=== PATIENT | female | born 2000 | race Caucasian/White ===

== ENCOUNTER 2019-01-23 13:01 | Observation (INO) | payer BC, OTHER ==
--- NOTE | 2019-01-23 13:37 | EDM.PDOC ---
ED HPI GENERAL MEDICAL PROBLEM - General Chief Complaint: Respiratory Problem Stated Complaint: SOB/ Time Seen by Provider: 01/23/19 13:25 Source of Information: Reports: Patient History Limitations: Reports: No Limitations - History of Present Illness INITIAL COMMENTS - FREE TEXT/NARRATIVE: patient is a 18-year-old female who presents with complaints of shortness of breath and feeling of heaviness in her chest, specifically in the right upper chest/neck area, when she tries to take a deep breath for the last few days. She states that the shortness of breath is present at rest and with activity. She denies any pain in her chest, cough, fever or chills. Of note the patient is 2 weeks with a normal vaginal delivery. The patient did have anemia during her and continues to take an iron tablets daily. She also takes a vitamin and vitamin D. She states that her flow is scant at this time and that she did not have excessive bleeding . She denies any chronic health problems. Dr. Cramer is her primary care provider and was also her LIGHT ADJUSTER. She has not had a follow-up appointment as of yet. - Related Data Allergies Allergy/AdvReac Type Severity Reaction Status Date / Time cat dander Allergy Itching Verified 01/23/19 13:20 Home Meds: Home Meds Iron Polysaccharides Complex [Ferrex 150] 150 mg PO BID 01/23/19 [History] Past Medical History - Past Health History Medical/Surgical History: Denies Medical/Surgical History Cardiovascular History: Reports: Heart Murmur Respiratory History: Reports: Asthma Gastrointestinal History: Reports: GERD, Other (See Below) LIGHT ADJUSTER History: Reports: Psychiatric History: Reports: Anxiety, Depression Hematologic History: Reports: Anemia - Past Surgical History HEENT Surgical History: Reports: Other (See Below) Other HEENT Surgeries/Procedures: wisdom teeth removed Other Cardiovascular Surgeries/Procedures: no complications from heart mumur GI Surgical History: Reports: Other (See Below) Other GI Surgeries/Procedures: gastric sleeve sx. in june 2017 Social & Family History - Family History Family Medical History: Noncontributory - Tobacco Use Smoking Status *Q: Never Smoker Second Hand Smoke Exposure: No - Caffeine Use Caffeine Use: Reports: Coffee, Energy Drinks, Soda - Recreational Drug Use Recreational Drug Use: No ED ROS GENERAL - Review of Systems Review Of Systems: See Below Constitutional: Reports: No Symptoms. Denies: Fever, Chills, Malaise HEENT: Reports: No Symptoms Respiratory: Reports: Shortness of Breath. Denies: Wheezing, Pleuritic Chest Pain, Cough Cardiovascular: Reports: Dyspnea on Exertion. Denies: Lightheadedness, Palpitations Endocrine: Reports: No Symptoms GI/Abdominal: Reports: No Symptoms. Denies: Abdominal Pain, Nausea : Reports: No Symptoms Musculoskeletal: Reports: No Symptoms Skin: Reports: No Symptoms Neurological: Reports: No Symptoms. Denies: Dizziness, Headache Psychiatric: Reports: No Symptoms Hematologic/Lymphatic: Reports: No Symptoms Immunologic: Reports: No Symptoms ED EXAM, GENERAL - Physical Exam Exam: See Below Exam Limited By: No Limitations General Appearance: Alert, WD/WN, No Apparent Distress Head: Atraumatic, Normocephalic Respiratory/Chest: No Respiratory Distress, Lungs Clear, Normal Breath Sounds, No Accessory Muscle Use, Chest Non-Tender Cardiovascular: Normal Peripheral Pulses, Regular Rate, Rhythm, No Edema, No Murmur GI/Abdominal: Normal Bowel Sounds, Soft, Non-Tender, No Distention, No Mass Extremities: Normal Inspection, No Pedal Edema Neurological: Alert, Oriented, Normal Cognition Psychiatric: Normal Affect, Normal Mood Skin Exam: Warm, Dry, Intact, Normal Color, No Rash Lymphatic: No Adenopathy Course - Vital Signs Last Recorded V/S: Last Vital Signs Temp 98.4 F 01/23/19 13:19 Pulse 70 01/23/19 13:19 Resp 14 01/23/19 13:19 BP 114/70 01/23/19 13:19 Pulse Ox 98 01/23/19 13:19 - Orders/Labs/Meds Orders: Active Orders 24 hr Category Date Time Status Patient Status [ADT] Routine ADT 01/23/19 17:25 Active Activity as Tolerated [RC] .Routine Care 01/23/19 17:25 Active Antiembolic Devices [RC] PER UNIT ROUTINE Care 01/23/19 17:25 Active Notify Provider Consults [RC] ASDIRECTED Care 01/23/19 17:17 Active Oxygen Therapy [RC] PRN Care 01/23/19 17:25 Active RT Incentive Spirometry [RC] Q1HWA Care 01/23/19 17:25 Active Vital Signs [RC] Q8H Care 01/23/19 17:25 Active Consult to Physician [CONS] Stat Cons 01/23/19 17:05 Active Nothing Per Oral Diet [DIET] Diet 01/23/19 Breakfast Active BASIC METABOLIC PANEL,BMP [CHEM] AM Lab 01/24/19 05:11 Ordered CBC WITH AUTO DIFF [HEME] AM Lab 01/24/19 05:11 Ordered Heparin Sodium Med 01/23/19 17:30 Active 5,000 units SUBCUT Q8H Lactated Ringers [Ringers, Lactated] 1,000 ml Med 01/23/19 17:30 Active IV ASDIRECTED Sodium Chloride 0.9% [Saline Flush] Med 01/23/19 16:26 Active 10 ml FLUSH ONETIME PRN Sequential Compression Device [OM.PC] Routine Oth 01/23/19 17:25 Ordered Resuscitation Status Routine Resus Stat 01/23/19 17:25 Ordered Medication Orders Heparin Sodium (Porcine) (Heparin Sodium) 5,000 units SUBCUT Q8H MORGAN Lactated Ringer's (Ringers, Lactated) 1,000 mls @ 100 mls/hr IV ASDIRECTED MORGAN Sodium Chloride (Saline Flush) 10 ml FLUSH ONETIME PRN PRN Reason: KEEP VEIN OPEN Last Admin: 01/23/19 16:31 Dose: 10 ml Labs: Laboratory Tests 01/23/19 01/23/19 01/23/19 Range/Units 14:05 14:05 14:05 WBC 5.99 (3.98-10.04) K/mm3 RBC 4.91 (3.98-5.22) M/mm3 Hgb 14.2 D (11.2-15.7) gm/dl Hct 42.8 (34.1-44.9) % MCV 87.2 (79.4-94.8) fl MCH 28.9 (25.6-32.2) pg MCHC 33.2 (32.2-35.5) g/dl RDW Std Deviation 47.5 H (36.4-46.3) fL Plt Count 241 D (182-369) K/mm3 MPV 11.4 (9.4-12.3) fl Neut % (Auto) 60.8 (34.0-71.1) % Lymph % (Auto) 27.9 (19.3-51.7) % [place] % (Auto) 7.8 (4.7-12.5) % Eos % (Auto) 3.0 (0.7-5.8) Baso % (Auto) 0.5 (0.1-1.2) % Neut # (Auto) 3.64 (1.56-6.13) K/mm3 Lymph # (Auto) 1.67 (1.18-3.74) K/mm3 [place] # (Auto) 0.47 H (0.24-0.36) K/mm3 Eos # (Auto) 0.18 (0.04-0.36) K/mm3 Baso # (Auto) 0.03 (0.01-0.08) K/mm3 D-Dimer, Quantitative 0.46 (0.19-0.50) mg/L Sodium 146 H (136-145) mEq/L Potassium 4.1 (3.5-5.1) mEq/L Chloride 110 H (98-107) mEq/L Carbon Dioxide 26 (21-32) mEq/L Anion Gap 14.1 (5-15) BUN 13 (7-18) mg/dL Creatinine 1.0 (0.55-1.02) mg/dL Est Cr Clr Drug Dosing 84.71 mL/min Estimated GFR (MDRD) > 60 (>60) mL/min BUN/Creatinine Ratio 13.0 L (14-18) Glucose 87 (74-106) mg/dL Calcium 8.9 (8.5-10.1) mg/dL Total Bilirubin 0.6 (0.2-1.0) mg/dL AST 20 (15-37) U/L ALT 28 (14-59) U/L Alkaline Phosphatase 122 H (46-116) U/L Total Protein 7.0 (6.4-8.2) g/dl Albumin 3.4 (3.4-5.0) g/dl Globulin 3.6 gm/dL Albumin/Globulin Ratio 0.9 L (1-2) Meds: Medications Generic Name Dose Route Start Last Admin Trade Name Freq PRN Reason Stop Dose Admin Heparin Sodium (Porcine) 5,000 units 01/23/19 17:30 Heparin Sodium SUBCUT Q8H MORGAN Lactated Ringer's 1,000 mls @ 100 mls/hr 01/23/19 17:30 Ringers, Lactated IV ASDIRECTED MORGAN Sodium Chloride 10 ml 01/23/19 16:26 01/23/19 16:31 Saline Flush FLUSH 10 ml ONETIME PRN Administration KEEP VEIN OPEN Discontinued Medications Generic Name Dose Route Start Last Admin Trade Name Mayur PRN Reason Stop Dose Admin Diatrizoate Meglum/Diatrizoate Sod 60 ml 01/23/19 16:26 01/23/19 16:30 Gastrografin 37% PO 01/23/19 16:27 60 ml ONETIME ONE Administration Iopamidol 100 ml 01/23/19 16:26 01/23/19 16:31 Isovue-300 (61%) IVPUSH 01/23/19 16:27 100 ml ONETIME ONE Administration - Re-Assessments/Exams Free Text/Narrative Re-Assessment/Exam: patient is a 18-year-old female who presents with complaints of shortness of breath and heaviness in her chest for the last couple days. She denies any pain to the chest at any point and has not had a cough, fever, or chills. Patient is approximately 2 weeks from a normal vaginal delivery. Her vital signs are normal with an oxygen saturation is 98% on room air, respiratory rate 14, her pulse is 70, and a blood pressure of 114/70. She is afebrile with a temperature of 98.4. She does have a history of anemia during and has been taking iron supplements daily in addition to a vitamin. She states that she did not have significant bleeding and that her flow is currently scant. I've ordered a CBC to check for anemia, a d- dimer, as well as a 2 view chest x-ray. 01/23/19 15:03 Patient's laboratory test returned back grossly unremarkable. Her hemoglobin is normal at 14.2 and her d-dimer is normal at 0.46. Her chest x-ray however does show a small amount of free air beneath both hemidiaphragms. Patient has not had any abdominal pain and I did confirm that she did have a normal vaginal delivery, not a section. On exam patient's abdomen was nontender, and soft. She states that she did have a gastric sleeve done a little over a year ago, but no recent abdominal surgeries. Case reviewed with Dr. Sotelo who also did assess the patient. We did call the on-call LIGHT ADJUSTER, Dr. Parada. He knew of no normal correlation between free air in the abdomen and a vaginal delivery. Based on this finding we are going to proceed with an abdomen pelvis CT. Patient and her mother updated and they are in agreement with this plan. The patient is breast-feeding and had questions of whether or not it is okay to continue to breast-feed after the CT scan. Patient was educated that if she chooses to pump and dump that is okay however the [employer] does state that it is safe to continue breast-feeding after a contrast enhanced CT. Free Text/Narrative Re-Assessment/Exam: 01/23/19 17:05 formal read on the CT report is still pending. I did call and speak with our general surgeon on-call, Dr. Wong, to give him the information that we have on the case up until this point. He states that he will come in and see her. Free Text/Narrative Re-Assessment/Exam: 01/23/19 17:[address] the [address] abdomen and pelvisreads as follows: 1. Generous sized uterus compatible with state. 2. Prior gastric surgery. 3. Free air beneath the hemidiaphragms, etiology not seen on this exam. 3. Nothing acute is otherwise seen on CT study of the abdomen and pelvis. Dr. Wong was here to assess patient. He advised that he is going to admit the patient overnight for observation. He has already placed admission orders. Charge nurse updated. discussed this plan with patient and her mother. They' re in agreement with the plan and have no questions. Departure - Departure Time of Disposition: 17:40 Disposition: Refer to Observation Condition: Good Clinical Impression: Intra-abdominal free air of unknown etiology - Discharge Information *PRESCRIPTION DRUG MONITORING PROGRAM REVIEWED*: No *COPY OF PRESCRIPTION DRUG MONITORING REPORT IN PATIENT EDWAR: No Referrals: Ekaterina Cramer MD [Primary Care Provider] - Forms: ED Department Discharge - My Orders Last 24 Hours: My Active Orders 01/23/19 16:26 Sodium Chloride 0.9% [Saline Flush] 10 ml FLUSH ONETIME PRN 01/23/19 17:05 Consult to Physician [CONS] Stat 01/23/19 17:17 Notify Provider Consults [RC] ASDIRECTED - Assessment/Plan Last 24 Hours: My Active Orders 01/23/19 16:26 Sodium Chloride 0.9% [Saline Flush] 10 ml FLUSH ONETIME PRN 01/23/19 17:05 Consult to Physician [CONS] Stat 01/23/19 17:17 Notify Provider Consults [RC] ASDIRECTED
--- NOTE | 2019-01-23 14:19 | CR ---
Chest: Two views of the chest were obtained. Comparison: No prior chest x-ray. Small amount of free air is seen below both hemidiaphragms. Lungs are clear with no acute parenchymal change. Heart size and mediastinum are normal. Bony structures are unremarkable. Impression: 1. Small amount of free air beneath both hemidiaphragms. Please correlate if this represents recent surgery. 2. Nothing acute is otherwise seen on two-view chest x-ray. Diagnostic code #5
[2019-01-23] MEDS ORDERED: Iopamidol 612 MG/ML 100 ML Bottle IVPUSH ONE (16:26)
[2019-01-23] MEDS ORDERED: Sodium Chloride 0.9% 10 ML Syringe FLUSH PRN (16:26)
[2019-01-23] MEDS ORDERED: Diatrizoate Meglumine/Diatrizoate Sodium 37% 120 ML Bottle PO ONE (16:26)
--- NOTE | 2019-01-23 17:06 | CT ---
CT abdomen and pelvis Technique: Multiple axial sections were obtained from slightly below the top the liver inferiorly through the pubic symphysis. Intravenous and oral contrast was utilized. Comparison: Prior CT stone protocol study of 12/26/17. Findings: Free air identified below both hemidiaphragms. Previous stomach surgery is noted. Visualized lung bases show nothing acute. Liver shows no discrete abnormality. Spleen appears within normal limits. Adrenal glands show no nodule. Kidneys show symmetric contrast enhancement. Right ureter slightly prominent in size. Pancreas is within normal limits. Gallbladder contains no calcified gallstones. Aorta shows no aneurysm. No retroperitoneal adenopathy or mesenteric abnormalities are seen. Uterus is slightly generous in size compatible with uterus. No free fluid or inflammatory change is seen. Right ureter remains slightly prominent likely representing residual change from previous hydronephrosis . Appendix is seen and is normal in size. Impression: 1. Generous sized uterus compatible with state. 2. Prior gastric surgery. 3. Free air beneath the hemidiaphragms, etiology not seen on this exam. 3. Nothing acute is otherwise seen on CT study of the abdomen and pelvis. Diagnostic code #3
--- NOTE | 2019-01-23 17:33 | PCM.HP.2 ---
H&P History of Present Illness - General Date of Service: 01/23/19 Admit Problem/Dx: Admission Diagnosis/Problem Admission Diagnosis/Problem Pneumoperitoneum Source of Information: Patient History Limitations: Reports: No Limitations - History of Present Illness Duration of Symptoms: Reports: Day(s): Location: Reports: Abdomen Other HPI/Comments: 18 yo with history of obesity s/p lap gastric sleeve 18 months ago and now 2 weeks after unremarkable vaginal delivery presents with a few days of shortness of breath. Found to have pneumoperitoneum on imaging. Denies pain, vitals and labs within normal limits. In no distress. - Related Data Allergies/Adverse Reactions: Allergies Allergy/AdvReac Type Severity Reaction Status Date / Time cat dander Allergy Itching Verified 01/23/19 13:20 Home Medications: Home Meds Iron Polysaccharides Complex [Ferrex 150] 150 mg PO BID 01/23/19 [History] Past Medical History - Past Health History Medical/Surgical History: Denies Medical/Surgical History Cardiovascular History: Reports: Heart Murmur Respiratory History: Reports: Asthma Gastrointestinal History: Reports: GERD, Other (See Below) BRAIN SURGEON History: Reports: Psychiatric History: Reports: Anxiety, Depression Hematologic History: Reports: Anemia - Past Surgical History HEENT Surgical History: Reports: Other (See Below) Other HEENT Surgeries/Procedures: wisdom teeth removed Other Cardiovascular Surgeries/Procedures: no complications from heart mumur GI Surgical History: Reports: Other (See Below) Other GI Surgeries/Procedures: gastric sleeve sx. in june 2017 Social & Family History - Family History Family Medical History: Noncontributory - Tobacco Use Smoking Status *Q: Never Smoker Second Hand Smoke Exposure: No - Caffeine Use Caffeine Use: Reports: Coffee, Energy Drinks, Soda - Recreational Drug Use Recreational Drug Use: No H&P Review of Systems - Review of Systems: Review Of Systems: See Below General: Reports: No Symptoms HEENT: Reports: No Symptoms Pulmonary: Reports: Shortness of Breath Cardiovascular: Reports: No Symptoms Gastrointestinal: Reports: No Symptoms Genitourinary: Reports: No Symptoms Musculoskeletal: Reports: No Symptoms Skin: Reports: No Symptoms Psychiatric: Reports: No Symptoms Neurological: Reports: No Symptoms Hematologic/Lymphatic: Reports: No Symptoms Immunologic: Reports: No Symptoms Exam - Exam Exam: See Below - Vital Signs Vital Signs: Last Vital Signs Temp 36.9 C 01/23/19 13:19 Pulse 70 01/23/19 13:19 Resp 14 01/23/19 13:19 BP 114/70 01/23/19 13:19 Pulse Ox 98 01/23/19 13:19 Weight: 89.811 kg - Exam General: Alert, Oriented, Cooperative HEENT: Conjunctiva Clear Neck: Supple Lungs: Clear to Auscultation, Normal Respiratory Effort Cardiovascular: Regular Rate, Regular Rhythm GI/Abdominal Exam: Soft, Non-Tender, No Distention (Female) Exam: Deferred Rectal (Female) Exam: Deferred Back Exam: Normal Inspection Extremities: Normal Inspection Skin: Warm, Dry Neuro Extensive - Mental Status: Alert, Oriented x3, Normal Mood/Affect, Normal Cognition Neuro Extensive - Motor, Sensory, Reflexes: Normal Gait Psychiatric: Alert, Normal Affect, Normal Mood - Patient Data Lab Results Last 24 hrs: Laboratory Results - last 24 hr 01/23/19 01/23/19 Range/Units 14:05 14:05 WBC 5.99 (3.98-10.04) K/mm3 RBC 4.91 (3.98-5.22) M/mm3 Hgb 14.2 D (11.2-15.7) gm/dl Hct 42.8 (34.1-44.9) % MCV 87.2 (79.4-94.8) fl MCH 28.9 (25.6-32.2) pg MCHC 33.2 (32.2-35.5) g/dl RDW Std Deviation 47.5 H (36.4-46.3) fL Plt Count 241 D (182-369) K/mm3 MPV 11.4 (9.4-12.3) fl Neut % (Auto) 60.8 (34.0-71.1) % Lymph % (Auto) 27.9 (19.3-51.7) % [place] % (Auto) 7.8 (4.7-12.5) % Eos % (Auto) 3.0 (0.7-5.8) Baso % (Auto) 0.5 (0.1-1.2) % Neut # (Auto) 3.64 (1.56-6.13) K/mm3 Lymph # (Auto) 1.67 (1.18-3.74) K/mm3 Jay # (Auto) 0.47 H (0.24-0.36) K/mm3 Eos # (Auto) 0.18 (0.04-0.36) K/mm3 Baso # (Auto) 0.03 (0.01-0.08) K/mm3 D-Dimer, Quantitative 0.46 (0.19-0.50) mg/L Result Diagrams: 01/23/19 14:05 *Q Meaningful Use (ADM) - VTE Risk Assess *Q Each Risk Factor Represents 1 Point: or , Less than 1 Month Total Score 1 Point Risk Factors: 1 Problem List Initiated/Reviewed/Updated: Yes Orders Last 24hrs: Active Orders 24 hr Category Date Time Status Patient Status [ADT] Routine ADT 01/23/19 17:25 Ordered Activity as Tolerated [RC] .Routine Care 01/23/19 17:25 Ordered Antiembolic Devices [RC] PER UNIT ROUTINE Care 01/23/19 17:25 Ordered Notify Provider Consults [RC] ASDIRECTED Care 01/23/19 17:17 Active Oxygen Therapy [RC] PRN Care 01/23/19 17:25 Ordered RT Incentive Spirometry [RC] Q1HWA Care 01/23/19 17:25 Ordered Vital Signs [RC] Q8H Care 01/23/19 17:25 Ordered Consult to Physician [CONS] Stat Cons 01/23/19 17:05 Active Nothing Per Oral Diet [DIET] Diet 01/23/19 Breakfast Ordered BASIC METABOLIC PANEL,BMP [CHEM] AM Lab 01/24/19 05:11 Ordered CBC WITH AUTO DIFF [HEME] AM Lab 01/24/19 05:11 Ordered COMPREHENSIVE METABOLIC PN,CMP [CHEM] Stat Lab 01/23/19 14:05 Received Heparin Sodium Med 01/23/19 17:30 Ordered 5,000 units SUBCUT Q8H Lactated Ringers @ 100 MLS/HR(1000ml Bag) Med 01/23/19 17:30 Ordered Lactated Ringers [Ringers, Lactated] 1,000 ml IV ASDIRECTED Sodium Chloride 0.9% [Saline Flush] Med 01/23/19 16:26 Active 10 ml FLUSH ONETIME PRN Sequential Compression Device [OM.PC] Routine Oth 01/23/19 17:25 Ordered Resuscitation Status Routine Resus Stat 01/23/19 17:25 Ordered Medication Orders Heparin Sodium (Porcine) (Heparin Sodium) 5,000 units SUBCUT Q8H [facility] Lactated Ringer's (Ringers, Lactated) 1,000 mls @ 100 mls/hr IV ASDIRECTED [facility] Sodium Chloride (Saline Flush) 10 ml FLUSH ONETIME PRN PRN Reason: KEEP VEIN OPEN Last Admin: 01/23/19 16:31 Dose: 10 ml Assessment/Plan Comment:: Incidental finding of pneumoperitoneum during evaluation for shortness of breath. Oxygenating well on room air, in no distress. Lab work and vitals are normal. The etiology of free air is unclear, but the patient's overall clinical picture is very reassuring. Plan to admit to obs, keep NPO and keep off pain medications, and re-evaluate in AM. - Mortality Measure Prognosis:: Good
[2019-01-23] MEDS: Lactated Ringers 1,000 ML IV SCH (18:39)
[2019-01-23] MEDS: Heparin Sodium 5,000 Units/ML Vial SUBCUT SCH (18:39)
[2019-01-24] MEDS: Heparin Sodium 5,000 Units/ML Vial SUBCUT SCH ×3 (02:20→09:03)
[2019-01-24] MEDS: Lactated Ringers 1,000 ML IV SCH (04:48)
[2019-01-24 12:57] VITALS: BP 121/60; PULSE 76
--- NOTE | 2019-01-24 13:58 | PCM.DCSUM1 ---
Discharge Summary - Hospital Course Free Text/Narrative:: prsented to ER two weeks with shortness of breath. Vitals were normal , but a CXR revealed incidental finding of pneumoperitoneum. This was confimred on CT scan, without free fluid seen in the abdomen. She had no abdominal pain and no tenderness on exam whatsoever. She was admitted for observation, kept NPO for 12 hours in house, then diet was advanced to make sure she would tolerate it for a day prior to discharge. Reviewed symptoms she should watch for. Diagnosis: Stroke: No - Discharge Data Discharge Date: 01/24/19 Discharge Disposition: Home, Self-Care 01 Condition: Good - Referral to Home Health Primary Care Physician: Ekaterina Cramer MD - Patient Summary/Data Consults: Consultations 01/23/19 17:05 Consult to Physician [CONS] Stat - Patient Instructions Diet: Regular Diet as Tolerated Driving: May Drive Today Showering/Bathing: June Shower Notify Provider of: Fever, Increased Pain, Nausea and/or Vomiting - Discharge Plan *PRESCRIPTION DRUG MONITORING PROGRAM REVIEWED*: Not Applicable *COPY OF PRESCRIPTION DRUG MONITORING REPORT IN PATIENT EDWAR: Not Applicable Home Medications: Home Meds Calcium Carbonate/Vitamin D3 [Calcium 500 mg Chewable Tablet] 1 each PO DAILY [History] Cholecalciferol (Vitamin D3) [Vitamin D] 1 cap PO DAILY 01/23/19 [History] Iron Polysaccharides Complex [Ferrex 150] 150 mg PO BID 01/23/19 [History] Pnv No.95/Ferrous Fum/Folic AC [ Caplet] 1 tab PO DAILY 01/23/19 [ History] Oxygen Therapy Mode: Room Air Patient Handouts: Peptic Ulcer, [id number] Forms: ED Department Discharge Referrals: Ekaterina Cramer MD [Primary Care Provider] - - Discharge Summary/Plan Comment DC Time >30 min.: Yes - Patient Data Vitals - Most Recent: Last Vital Signs Temp 36.6 C 01/24/19 12:38 Pulse 76 01/24/19 12:38 Resp 18 01/24/19 12:38 BP 121/60 01/24/19 12:38 Pulse Ox 98 01/24/19 12:38 Weight - Most Recent: 91.217 kg I&O - Last 24 hours: Intake & Output 01/23/19 01/24/19 01/24/19 22:59 06:59 14:59 Intake Total 1000 120 Balance 1000 120 Lab Results - Last 24 hrs: Laboratory Results - last 24 hr 01/23/19 01/23/19 01/23/19 Range/Units 14:05 14:05 14:05 WBC 5.99 (3.98-10.04) K/mm3 RBC 4.91 (3.98-5.22) M/mm3 Hgb 14.2 D (11.2-15.7) gm/dl Hct 42.8 (34.1-44.9) % MCV 87.2 (79.4-94.8) fl MCH 28.9 (25.6-32.2) pg MCHC 33.2 (32.2-35.5) g/dl RDW Std Deviation 47.5 H (36.4-46.3) fL Plt Count 241 D (182-369) K/mm3 MPV 11.4 (9.4-12.3) fl Neut % (Auto) 60.8 (34.0-71.1) % Lymph % (Auto) 27.9 (19.3-51.7) % [place] % (Auto) 7.8 (4.7-12.5) % Eos % (Auto) 3.0 (0.7-5.8) Baso % (Auto) 0.5 (0.1-1.2) % Neut # (Auto) 3.64 (1.56-6.13) K/mm3 Lymph # (Auto) 1.67 (1.18-3.74) K/mm3 [place] # (Auto) 0.47 H (0.24-0.36) K/mm3 Eos # (Auto) 0.18 (0.04-0.36) K/mm3 Baso # (Auto) 0.03 (0.01-0.08) K/mm3 D-Dimer, Quantitative 0.46 (0.19-0.50) mg/L Sodium 146 H (136-145) mEq/L Potassium 4.1 (3.5-5.1) mEq/L Chloride 110 H (98-107) mEq/L Carbon Dioxide 26 (21-32) mEq/L Anion Gap 14.1 (5-15) BUN 13 (7-18) mg/dL Creatinine 1.0 (0.55-1.02) mg/dL Est Cr Clr Drug Dosing 84.71 mL/min Estimated GFR (MDRD) > 60 (>60) mL/min BUN/Creatinine Ratio 13.0 L (14-18) Glucose 87 (74-106) mg/dL Calcium 8.9 (8.5-10.1) mg/dL Total Bilirubin 0.6 (0.2-1.0) mg/dL AST 20 (15-37) U/L ALT 28 (14-59) U/L Alkaline Phosphatase 122 H (46-116) U/L Total Protein 7.0 (6.4-8.2) g/dl Albumin 3.4 (3.4-5.0) g/dl Globulin 3.6 gm/dL Albumin/Globulin Ratio 0.9 L (1-2) 01/24/19 01/24/19 Range/Units 04:50 04:50 WBC 5.75 (3.98-10.04) K/mm3 RBC 4.32 (3.98-5.22) M/mm3 Hgb 12.5 D (11.2-15.7) gm/dl Hct 37.7 (34.1-44.9) % MCV 87.3 (79.4-94.8) fl MCH 28.9 (25.6-32.2) pg MCHC 33.2 (32.2-35.5) g/dl RDW Std Deviation 47.0 H (36.4-46.3) fL Plt Count 193 (182-369) K/mm3 MPV 11.7 (9.4-12.3) fl Neut % (Auto) 44.7 (34.0-71.1) % Lymph % (Auto) 42.1 (19.3-51.7) % [place] % (Auto) 9.2 (4.7-12.5) % Eos % (Auto) 3.3 (0.7-5.8) Baso % (Auto) 0.5 (0.1-1.2) % Neut # (Auto) 2.57 (1.56-6.13) K/mm3 Lymph # (Auto) 2.42 (1.18-3.74) K/mm3 [place] # (Auto) 0.53 H (0.24-0.36) K/mm3 Eos # (Auto) 0.19 (0.04-0.36) K/mm3 Baso # (Auto) 0.03 (0.01-0.08) K/mm3 D-Dimer, Quantitative (0.19-0.50) mg/L Sodium 141 (136-145) mEq/L Potassium 3.6 (3.5-5.1) mEq/L Chloride 107 (98-107) mEq/L Carbon Dioxide 23 (21-32) mEq/L Anion Gap 14.6 (5-15) BUN 10 (7-18) mg/dL Creatinine 0.9 (0.55-1.02) mg/dL Est Cr Clr Drug Dosing 94.12 mL/min Estimated GFR (MDRD) > 60 (>60) mL/min BUN/Creatinine Ratio 11.1 L (14-18) Glucose 82 (74-106) mg/dL Calcium 8.7 (8.5-10.1) mg/dL Total Bilirubin (0.2-1.0) mg/dL AST (15-37) U/L ALT (14-59) U/L Alkaline Phosphatase (46-116) U/L Total Protein (6.4-8.2) g/dl Albumin (3.4-5.0) g/dl Globulin gm/dL Albumin/Globulin Ratio (1-2) Med Orders - Current: Current Medications Heparin Sodium (Porcine) (Heparin Sodium) 5,000 units SUBCUT Q8H [facility] Last Admin: 01/24/19 09:03 Dose: Not Given Lactated Ringer's (Ringers, Lactated) 1,000 mls @ 100 mls/hr IV ASDIRECTED [facility] Last Admin: 01/24/19 04:48 Dose: 100 mls/hr Sodium Chloride (Saline Flush) 10 ml FLUSH ONETIME PRN PRN Reason: KEEP VEIN OPEN Last Admin: 01/23/19 16:31 Dose: 10 ml Discontinued Medications Diatrizoate Meglum/Diatrizoate Sod (Gastrografin 37%) 60 ml PO ONETIME ONE Stop: 01/23/19 16:27 Last Admin: 01/23/19 16:30 Dose: 60 ml Iopamidol (Isovue-300 (61%)) 100 ml IVPUSH ONETIME ONE Stop: 01/23/19 16:27 Last Admin: 01/23/19 16:31 Dose: 100 ml
== END 2019-01-24 15:48 | disposition home or self-care (01) ==
LOC: JD.ED 13:01 → JD.MS 17:25
PROVIDERS: ADMIT Surgery; ATTEND Surgery
DX: O99.53 Diseases of the respiratory system complicating the puerperium (principal); O99.63 Diseases of the digestive system complicating the puerperium; O99.345 Other mental disorders complicating the puerperium; R06.02 Shortness of breath; K66.8 Other specified disorders of peritoneum; K21.9 Gastro-esophageal reflux disease without esophagitis; J45.909 Unspecified asthma, uncomplicated; F41.9 Anxiety disorder, unspecified; F32.9 Major depressive disorder, single episode, unspecified; Z98.84 Bariatric surgery status; Z91.048 Other nonmedicinal substance allergy status
CPT/HCPCS: 36415; 71046; 74177; 80048; 80053; 85025; 85379; 96360; 96361; 96372; 99285; G0378; J1644; J7120; Q9963; Q9967

== ENCOUNTER 2019-09-11 15:06 | Emergency (ER) | payer OTHER, MEDICAID ==
[2019-09-11 15:28] VITALS: BP 131/64; PULSE 66
--- NOTE | 2019-09-11 16:02 | EDM.PDOC ---
ED HPI GENERAL MEDICAL PROBLEM - General Chief Complaint: Respiratory Problem Stated Complaint: CHEST PAIN,SOB, BODY ACHES,NAUSEA Time Seen by Provider: 09/11/19 15:38 Source of Information: Reports: Patient History Limitations: Reports: No Limitations - History of Present Illness INITIAL COMMENTS - FREE TEXT/NARRATIVE: The patient presents with a chest pain, cough, congestion, fever, chills and shortness of breath. The chest pain started today and it is gone now. She did travel down to [place] in the past week. She was concerned that maybe she was exposed to the COVID virus. She has no abdominal pain, nausea, vomiting or diarrhea. She has a history of asthma as a child. Onset: Gradual Duration: Hour(s): Location: Reports: Chest Quality: Reports: Sharp Severity: Moderate Improves with: Reports: None Worsens with: Reports: None Associated Symptoms: Reports: Chest Pain, Shortness of Breath. Denies: Cough, Fever/Chills, Headaches, Nausea/Vomiting Chest Pain Score (Numeric/FACES): 3 - Related Data Allergies Allergy/AdvReac Type Severity Reaction Status Date / Time cat dander Allergy Itching Verified 09/11/19 15:26 Home Meds: Home Meds Cholecalciferol (Vitamin D3) [Vitamin D] 1 cap PO DAILY 01/23/19 [History] Iron Polysaccharides Complex [Ferrex 150] 150 mg PO BID 01/23/19 [History] Pnv No.95/Ferrous Fum/Folic AC [ Caplet] 1 tab PO DAILY 01/23/19 [History] Sertraline HCl 25 mg PO DAILY 09/11/19 [History] Past Medical History - Past Health History Medical/Surgical History: Denies Medical/Surgical History Cardiovascular History: Reports: Heart Murmur Respiratory History: Reports: Asthma Gastrointestinal History: Reports: GERD, Other (See Below) 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 in june 2017 Social & Family History - Family History Family Medical History: Noncontributory - Tobacco Use Smoking Status *Q: Never Smoker Second Hand Smoke Exposure: No - Caffeine Use Caffeine Use: Reports: None - Recreational Drug Use Recreational Drug Use: No ED ROS GENERAL - Review of Systems Review Of Systems: See Below Constitutional: Reports: No Symptoms HEENT: Reports: No Symptoms Respiratory: Reports: No Symptoms Cardiovascular: Reports: Chest Pain Endocrine: Reports: No Symptoms GI/Abdominal: Reports: No Symptoms : Reports: No Symptoms Musculoskeletal: Reports: No Symptoms ED EXAM, GENERAL - Physical Exam Exam: See Below Exam Limited By: No Limitations General Appearance: Alert, No Apparent Distress Ears: Normal External Exam Nose: Normal Inspection Head: Atraumatic, Normocephalic Neck: Normal Inspection Respiratory/Chest: No Respiratory Distress, Lungs Clear, Normal Breath Sounds Cardiovascular: Regular Rate, Rhythm, No Edema, No Murmur GI/Abdominal: Soft, Non-Tender, No Organomegaly, No Mass Back Exam: Normal Inspection Extremities: Normal Inspection Course - Vital Signs Last Recorded V/S: Last Vital Signs Temp 97.8 F 09/11/19 15:27 Pulse 66 09/11/19 15:27 Resp 16 09/11/19 15:27 BP 131/64 09/11/19 15:27 Pulse Ox 100 09/11/19 15:27 - Orders/Labs/Meds Orders: Active Orders 24 hr Category Date Time Status CORONAVIRUS COVID-19 PCR PHL Stat Lab 09/11/19 16:18 Received - Re-Assessments/Exams Free Text/Narrative Re-Assessment/Exam: 09/11/19 16:04 I ordered a CXR and COVID 19 test. 09/11/19 16:34 Her CXR looks good. The COVID 19 will take a few days to get back. I will discharge her home and have her self isolate. Departure - Departure Time of Disposition: 16:35 Disposition: Home, Self-Care 01 Condition: Good Clinical Impression: Viral URI - Discharge Information *PRESCRIPTION DRUG MONITORING PROGRAM REVIEWED*: Not Applicable *COPY OF PRESCRIPTION DRUG MONITORING REPORT IN PATIENT EDWAR: Not Applicable Referrals: Ekaterina Cramer MD [Primary Care Provider] - Forms: ED Department Discharge, ED Return to Work/School Form Additional Instructions: Drink plenty of fluids. Take motrin or tylenol for pain. Quarantine yourself until you know the COVID 19 results. Please return if you are worse. Sepsis Event Note (ED) - Evaluation Sepsis Screening Result: No Definite Risk - Focused Exam Vital Signs: Vital Signs Temp Pulse Resp BP Pulse Ox 09/11/19 15:27 97.8 F 66 16 131/64 100 - My Orders Last 24 Hours: My Active Orders 09/11/19 16:18 CORONAVIRUS COVID-19 PCR PHL Stat - Assessment/Plan Last 24 Hours: My Active Orders 09/11/19 16:18 CORONAVIRUS COVID-19 PCR PHL Stat
--- NOTE | 2019-09-11 16:27 | CR ---
Chest: Portable view of the chest was obtained. Comparison: Prior chest x-ray of 01/23/19. Heart size and mediastinum are normal. Lungs are clear with no acute parenchymal change. Bony structures are grossly intact. Impression: 1. Nothing acute is appreciated on portable chest x-ray. Diagnostic code #1 This report was dictated in MDT
== END 2019-09-11 17:04 | disposition home or self-care (01) ==
LOC: JD.ED 15:06
DX: J06.9 Acute upper respiratory infection, unspecified (principal); F41.9 Anxiety disorder, unspecified; F32.9 Major depressive disorder, single episode, unspecified; Z91.048 Other nonmedicinal substance allergy status; Z79.899 Other long term (current) drug therapy; Z20.828 Contact with and (suspected) exposure to other viral communicable diseases
CPT/HCPCS: 71045; 71045-26; 99282; 99283-25; U0002

== ENCOUNTER 2020-01-16 12:00 | Emergency (ER) | payer OTHER, MEDICAID ==
[2020-01-16 12:19] VITALS: BP 118/67; PULSE 64
--- NOTE | 2020-01-16 12:54 | EDM.PDOC ---
ED HPI GENERAL MEDICAL PROBLEM - General Chief Complaint: Respiratory Problem Stated Complaint: SOB AND LEG CRAMPS Time Seen by Provider: 01/16/20 12:28 Source of Information: Reports: Patient, Old Records (clinic visit/labs from yesterday), RN Notes Reviewed History Limitations: Reports: No Limitations - History of Present Illness INITIAL COMMENTS - FREE TEXT/NARRATIVE: Patient is a 19-year-old female who presents to the ED for the evaluation of her shortness of breath. The patient was COVID-19 positive at the beginning of November, and came off quarantine on 12/21/2019. Patient notes that she has just been more subjectively short of breath, she states that she cannot even walk with her daughter to the car without feeling winded. She was seen in the clinic yesterday by Ciara Power, had some labs taken, a chest x-ray, and was found to have no major abnormalities. She presents to the ER today for some of the same symptoms. She states she feels like she is breathing through a straw, she has some mild "brain fog" where she cannot think straight. She is complaining of some minor leg cramps, and just generalized exhaustion. She has not had any fevers or chills, she has a slight cough and the above shortness of breath. She notes that she has had a few looser stools over the past couple days as well. She does have a daughter, who gets babysat by her mom during the day for daycare purposes. She notes a history of asthma when she was a teenager, but she does not take anything subsequently for this, and has not been on any other medications. Patient notes that she has a family history of heart issues, but she is not sure what, and she believes they might even be undiagnosed. She is a former smoker as well. - Related Data Allergies Allergy/AdvReac Type Severity Reaction Status Date / Time joseluis jean-baptiste Allergy Itching Verified 01/16/20 12:12 Home Meds: Home Meds Cholecalciferol (Vitamin D3) [Vitamin D] 1 cap PO DAILY 01/23/19 [History] Sertraline HCl 25 mg PO DAILY 09/11/19 [History] desogestreL-ethinyl estradioL [Enskyce 28 Tablet] 1 each PO DAILY 01/16/20 [History] Past Medical History - Past Health History Medical/Surgical History: Denies Medical/Surgical History HEENT History: Reports: Impaired Vision Cardiovascular History: Reports: Heart Murmur Respiratory History: Reports: Asthma Gastrointestinal History: Reports: GERD, Other (See Below) Genitourinary History: Reports: Renal Calculus 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: Musculoskeletal History: Reports: None Neurological History: Reports: None Psychiatric History: Reports: Anxiety, Depression Endocrine/Metabolic History: Reports: None Hematologic History: Reports: Anemia Oncologic (Cancer) History: Reports: None Dermatologic History: Reports: None - Infectious Disease History Infectious Disease History: Reports: None - Past Surgical History Head Surgeries/Procedures: Reports: None HEENT Surgical History: Reports: Other (See Below) Other HEENT Surgeries/Procedures: wisdom teeth removed Other Cardiovascular Surgeries/Procedures: no complications from heart mumur GI Surgical History: Reports: Other (See Below) Other GI Surgeries/Procedures: gastric sleeve sx. in june 2017 Social & Family History - Family History Family Medical History: No Pertinent Family History HEENT: Reports: None Cardiac: Reports: CAD, Hypertension Respiratory: Reports: None GI: Reports: None : Reports: None OBGYN: Reports: None Musculoskeletal: Reports: None Neurological: Reports: CVA Endocrine/Metabolic: Reports: Diabetes, type II, Hypothyroidism - Tobacco Use Tobacco Use Status *Q: Former Tobacco User Used Tobacco, but Quit: Yes Month/Year Tobacco Last Used: 01/2018 - Caffeine Use Caffeine Use: Reports: Coffee, Energy Drinks, Soda, Tea - Recreational Drug Use Recreational Drug Use: Yes Drug Use in Last 12 Months: No Recreational Drug Type: Reports: Marijuana/Hashish Recreational Drug Use Frequency: Not Used In Over 1 Year Recreational Drug Last Use: 01/2108 ED ROS GENERAL - Review of Systems Review Of Systems: Comprehensive ROS is negative, except as noted in HPI. ED EXAM, GENERAL - Physical Exam Exam: See Below Exam Limited By: No Limitations General Appearance: Alert, WD/WN, No Apparent Distress (pt takes a lot of deep sigh breaths, but is not dyspneic) Respiratory/Chest: No Respiratory Distress, Lungs Clear, Normal Breath Sounds, No Accessory Muscle Use, Chest Non-Tender Cardiovascular: Normal Peripheral Pulses, Regular Rate, Rhythm, No Edema, No Murmur Peripheral Pulses: 2+: Radial (R) Extremities: Normal Inspection, Normal Capillary Refill Neurological: Alert, Oriented, Normal Cognition, No Motor/Sensory Deficits Psychiatric: Normal Affect, Normal Mood Skin Exam: Warm, Dry, Intact, Normal Color, No Rash Course - Vital Signs Last Recorded V/S: Last Vital Signs Temp 99.2 F 01/16/20 12:17 Pulse 64 01/16/20 12:17 Resp 18 01/16/20 12:17 BP 118/67 01/16/20 12:17 Pulse Ox 99 01/16/20 12:17 - Re-Assessments/Exams Free Text/Narrative Re-Assessment/Exam: 01/16/20 12:55 Patient presents to the ED for evaluation of her post COVID-19 symptoms. I did review the clinic visit yesterday along with the labs, I do not find it clinically beneficial to repeat anything today. I did tell the patient that she will likely have to monitor her symptoms at home, I did suggest however that COVID-19 has some lingering effects on some patients hearts, and I told her to follow-up with her care provider for the possibility of an echocardiogram if they find it warranted. Patient is agreeable to this plan at this time. Departure - Departure Time of Disposition: 12:55 Disposition: Home, Self-Care 01 Condition: Good Clinical Impression: Dyspnea Qualifiers: Dyspnea type: dyspnea on exertion Qualified Code(s): R06.00 - Dyspnea, unspecified - Discharge Information *PRESCRIPTION DRUG MONITORING PROGRAM REVIEWED*: No *COPY OF PRESCRIPTION DRUG MONITORING REPORT IN PATIENT EDWAR: No Instructions: Shortness of Breath, Adult, [id number] Referrals: Ekaterina Cramer MD [Primary Care Provider] - Additional Instructions: You were evaluated in the ER today for your ongoing shortness of breath for COVID-19. Your labs were reviewed from yesterday from your clinic visit, and everything seems to be within normal limits. The only thing that was mildly elevated, was your CRP, which is a marker for inflammation. This is a common occurrence in patients that have ongoing COVID-19, and have had COVID-19. Unfortunately sometimes the feelings of dyspnea can hang around for quite some time, and I cannot give you an adequate timeline on when these should go away. You should go home and monitor your symptoms, and if they seem to worsen, or if you have a drop in your oxygen levels, that would be cause for concern to seek care for further medical management. I would recommend the possibility of an outpatient echocardiogram, to check your heart function, as you stated you have a history of some undiagnosed heart issues in your family. This again would be to assess your heart function, as we are sometimes finding in patients with post COVID-19 symptoms, lingering heart defects. Please return to the ER at any time if your symptoms change or worsen. Sepsis Event Note (ED) - Evaluation Sepsis Screening Result: No Definite Risk - Focused Exam Vital Signs: Vital Signs Temp Pulse Resp BP Pulse Ox 01/16/20 12:17 99.2 F 64 18 118/67 99
== END 2020-01-16 13:26 | disposition home or self-care (01) ==
LOC: JD.ED 12:00
DX: R06.00 Dyspnea, unspecified (principal); F41.9 Anxiety disorder, unspecified; F32.9 Major depressive disorder, single episode, unspecified; Z87.891 Personal history of nicotine dependence; Z91.048 Other nonmedicinal substance allergy status; Z79.899 Other long term (current) drug therapy
CPT/HCPCS: 99282; 99284

== ENCOUNTER 2021-07-06 23:08 | Emergency (ER) | payer OTHER, MEDICAID ==
[2021-07-06 23:22] VITALS: BP 153/91; PULSE 68
[2021-07-07] MEDS ORDERED: Ondansetron 4 MG Tab.DIS PO ONE (00:10)
== END 2021-07-07 00:26 | disposition home or self-care (01) ==
LOC: JD.ED 23:08
DX: R51.9 Headache, unspecified (principal); E66.9 Obesity, unspecified; Z68.30 Body mass index [BMI] 30.0-30.9, adult; Z91.09 Other allergy status, other than to drugs and biological substances; Z86.16 Personal history of COVID-19; Z87.891 Personal history of nicotine dependence
CPT/HCPCS: 99283; A9270